=== PATIENT | female | born 1975 | race Two or more races ===

== ENCOUNTER 2024-09-20 07:55 | Day surgery (SDC) | payer MEDICAID, SELFPAY ==
[2024-09-19 11:42] VITALS: BMI 35.4
[2024-09-19 12:22] LABS: Basophils # (Auto) 0.1 Thou/mm3 (0.0-0.2); Basophils % (Auto) 1 % (0-2.5); Eosinophils # (Auto) 0.2 Thou/mm3 (0.0-0.5); Eosinophils % (Auto) 2 % (0-10); Hematocrit 38.5 % (36.0-46.0); Hemoglobin 13.6 g/dL (12.0-16.0); Immature Granulocytes % (Auto) 0 % (0-0); Immature Granulocytes Auto 0.03 Thou/mm3 (0.00-0.00); Lymphocytes # (Auto) 3.6 Thou/mm3 (1.0-4.8); Lymphocytes % (Auto) 31 % (10-50); Mean Corpuscular HGB Conc 35.3 g/dl (31.0-37.0); Mean Corpuscular Hemoglobin 29.6 pg (25.0-35.0); Mean Corpuscular Volume 84 fL (80-100); Monocytes # (Auto) 0.7 Thou/mm3 (0.0-0.8); Monocytes % (Auto) 6 % (0-12); Neutrophils # (Auto) 6.9 Thou/mm3 (1.8-7.7); Neutrophils % (Auto) 60 % (37-80); Nucleated Red Blood Cell % 0 /100 WBC (0); Platelet Count 208 Thou/mm3 (140-440); RDW Standard Deviation 36.2 fL (36.4-46.3); Red Blood Count 4.59 Miln/mm3 (4.00-5.20); White Blood Count 11.6 Thou/mm3 (3.6-11.0)
[2024-09-19 12:31] LABS: INR 1.1 (0.9-1.3); Partial Thromboplastin Time 32.5 Seconds (22.0-36.0); Prothrombin Time 11.9 Seconds (9.0-12.2)
[2024-09-19 12:33] LABS: Anion Gap 7 (7-16); BUN/Creatinine Ratio 21 Ratio (12-20); Blood Urea Nitrogen 15 mg/dL (9-23); Calcium 9.8 mg/dL (8.3-10.6); Carbon Dioxide 28.7 mMol/L (20.0-31.0); Chloride 106 mMol/L (98-107); Creatinine (Component) 0.7 mg/dL (0.6-1.3); Estimated Creatinine Clearance 96.2 mL/min (>60); Glucose 95 mg/dL (74-106); Osmolality,Calculated 283 (275-295); Potassium 4.1 mMol/L (3.4-5.1); Sodium 142 mMol/L (136-145); eGFR > 60 See Note
[2024-09-19 12:34] LABS: Alanine Aminotransferase 17 U/L (10-49); Albumin, Serum 4.6 gm/dL (3.5-5.0); Albumin/Globulin Ratio 1.5 (1.2-2.2); Alkaline Phosphatase 135 U/L (46-116); Aspartate Amino Transferase 21 U/L (0-34); Bilirubin,Total 0.5 mg/dL (0.3-1.2); Calcium (Corrected) 9.8 mg/dL (8.5-10.1); Globulin 3.1 gm/dL (2.3-3.5); Total Protein 7.7 gm/dL (5.7-8.2)
[2024-09-19 12:52] LABS: HCG,Qualitative Serum Negative
[2024-09-20] VITALS (8 sets, daily range): BP systolic 116–133; BP diastolic 61–66; PULSE 69–85; RESP 14–18; TEMP 36.2–36.5; O2SAT 98–100; BMI 35.2
[2024-09-20] MEDS: RINGERS LACTATED 1000 ML 1,000 ML 20 ML IV (08:35)
--- NOTE | 2024-09-20 10:54 | ESOP_ITS ---
Date of Procedure 09/20/24 Pre Op Diagnosis Soft tissue mass upper back Post Op Diagnosis Same, lipoma Procedure Excision of soft tissue mass upper back Findings Patient was found to have lobulated lipoma measuring about 8 cm in the subcutaneous tissue over the scapula and muscles Procedure Description After the patient was brought to the operating room endotracheal anesthesia given. She was placed in prone position. Her arm was extended above her head and the upper back was washed with ChloraPrep solution and draped in a sterile manner. Timeout was performed. Then I made incision transversely over the upper back over the mass which was reasonably well-circumscribed. After injecting half percent Marcaine I made a transverse incision. Then I dissected out the mass which was sitting on the muscle using Lu retractors. After removing the lipoma intact the subcutaneous tissue was closed with 3-0 chromic and the skin was closed with 4-0 Monocryl after local anesthesia injection for pain relief. Patient tolerated the procedure Anesthesia GETA Pathology / specimen Other (Mass at the upper back) Estimated Blood Loss 20 Surgeon Yadira Sutherland MD Surgical Staff Operation Date: 09/20/24 10:00 Case Staff Anesthesiologist: Vidal Weber RNindustrial hygiene technician: Amber Munguia
--- NOTE | 2024-09-20 11:00 | SUR.PHASEI ---
1100: Pt. AAOx4, vitals stable, breathing unlabored, no complaint of pain or nausea, dressing to back CDI, no active bleed noted, report received from Dimitrios GARVIN and MD Weber.
--- NOTE | 2024-09-20 12:00 | SUR.PHASEII ---
1200: Pt. AAOx4, vitals stable, breathing unlabored, no complaint of pain or nausea, dressing to back is CDI, no active bleed noted, pt. tolerated sips of water well, pt. ambulated to wheelchair with steady gait and no assist, no complications. Gave discharge instructions to the pt. 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 Pt. left with all personal belongings.
== END 2024-09-20 12:00 | disposition home or self-care (01) ==
PROVIDERS: Anesthesiology; PCP Family Medicine; Referring Provider Surgery; Visit Provider Surgery
PROC: (CPT 21931; principal; 2024-09-20 10:00)
DX: D17.0 Benign lipomatous neoplasm of skin and subcutaneous tissue of head, face and neck (principal)
CPT/HCPCS: 21931; 36415; 80053; 84703; 85025; 85610; 85730; A4217; A4649; J1100; J2371; J2405; J2704; J3010; J3490; J7120; J1596